=== PATIENT | female | born 1965 | race Caucasian/White ===

== ENCOUNTER 2021-09-17 11:24 | Emergency (ER) | payer OTHER ==
[~2021-09-17] VITALS: Ht 157.5 cm; Wt 77.1 kg
[2021-09-17 11:37] VITALS: BP 121/80
--- NOTE | 2021-09-17 12:00 | NUR ---
BIBS C/O DIFFUSED BODY RASH AND ITCHING SINCE YESTERDAY. THE PATIENT DENIES PAIN. IN ROOM AIR AND DENIES SOB. RESPIRATION REGULAR AND UNLABORED. WILL CONTINUE TO MONITOR THE PATIENT.
[2021-09-17] MEDS ORDERED: DEXAMETHASONE SOD PHOSPHATE 10 MG/ML VIAL ONE (12:19)
[2021-09-17] MEDS ORDERED: diphenhydrAMINE HCL 50 MG/ML VIAL ONE (12:19)
[2021-09-17] MEDS ORDERED: diphenhydrAMINE HCL 50 MG/ML VIAL IV ONE (12:30)
[2021-09-17] MEDS ORDERED: methylPREDNISolone SOD SUCC 125 MG/2ML VIAL IV ONE (12:30)
[2021-09-17] MEDS ORDERED: diphenhydrAMINE HCL 50 MG/ML VIAL IM ONE (12:30)
[2021-09-17] MEDS ORDERED: DEXAMETHASONE SOD PHOSPHATE 10 MG/ML VIAL IM ONE (12:30)
[2021-09-17] MEDS ORDERED: PRED50TA PO (14:01)
[2021-09-17] MEDS ORDERED: DIPH25CA83 PO (14:01)
--- NOTE | 2021-09-17 14:08 | NUR ---
Patient discharged to home in stable condition. Instructed not to drive. Written and verbal after care instructions given. Patient verbalizes understanding of instruction.
== END 2021-09-17 14:09 | disposition home or self-care (01) ==
LOC: ER 11:30
DX: T78.40XA Allergy, unspecified, initial encounter (principal); E78.00 Pure hypercholesterolemia, unspecified; E11.9 Type 2 diabetes mellitus without complications; Z79.899 Other long term (current) drug therapy; X58.XXXA Exposure to other specified factors, initial encounter
CPT/HCPCS: 96372 ×2; 99284; J1100; J1200